=== PATIENT | male | born 1955 | race Caucasian/White ===

== ENCOUNTER 2019-04-04 07:55 | Day surgery (SDC) | payer BC ==
[~2019-04-04] VITALS: Ht 175.3 cm; Wt 70.1 kg
[~2019-04-04 07:55] MED LIST: ASPI81CH PO; Coq-1030 MG PO; Crestor20 MG PO; GABA100 PO; Hair, Skin & N1 EACH PO; INDOMETHACIN ER75 MG PO; LO-DOSE ASPIRIN81 MG PO; Metoprolol Succ25 MG PO; Pravastatin Sod20 MG PO; Prilosec10 M1 PO; Prinivil10 MG PO; ROSU10TA PO; SULFASALAZINE PO; Zantac150 MG PO
== END 2019-04-04 09:46 | disposition home or self-care (01) ==
LOC: ORSCSDS 07:55
PROVIDERS: Surgery
PROC: 0JBL0ZZ Excision of Right Upper Leg Subcutaneous Tissue and Fascia, Open Approach (ICD-10-PCS; principal; 2019-04-04 09:00)
DX: D17.1 Benign lipomatous neoplasm of skin and subcutaneous tissue of trunk (principal); E78.5 Hyperlipidemia, unspecified; I10 Essential (primary) hypertension; K21.9 Gastro-esophageal reflux disease without esophagitis; Z79.82 Long term (current) use of aspirin; Z79.899 Other long term (current) drug therapy
CPT/HCPCS: 88304; J7120

== ENCOUNTER 2019-07-12 06:50 | Emergency (ER) | payer BC ==
[~2019-07-12] VITALS: Ht 175.3 cm; Wt 69.4 kg
[2019-07-12] MEDS ORDERED: ROSU10TA PO (07:21)
[2019-07-12] MEDS ORDERED: OMEPRAZOLE20 MG PO (07:22)
[2019-07-12] MEDS ORDERED: NITR.4SL SL (07:24)
[2019-07-12 08:11] LABS: BASOPHILS ABSOLUTE AUTO 0.03 K/mm3 (0.00-0.23); BASOPHILS PERCENT AUTO 1 % (0-2); EOSINOPHILS ABSOLUTE AUTO 0.23 K/mm3 (0.00-0.68); EOSINOPHILS PERCENT AUTO 4 % (0-6); Hematocrit 42.4 % (37.0-53.0); Hemoglobin 14.2 g/dL (13.5-17.5); IMMATURE GRAN ABSOLUTE AUTO 0.01 K/mm3 (0.00-0.10); IMMATURE GRAN PERCENT AUTO 0 % (0-1); LYMPHOCYTES ABSOLUTE AUTO 1.37 K/mm3 (0.84-5.20); LYMPHOCYTES PERCENT AUTO 26 % (21-46); MONOCYTES ABSOLUTE AUTO 0.65 K/mm3 (0.16-1.47); MONOCYTES PERCENT AUTO 13 % (4-13); Mean Corpuscular HGB 30.6 pg (26.0-34.0); Mean Corpuscular HGB Conc 33.5 g/dL (31.5-36.5); Mean Corpuscular Volume 91 fL (80-100); NEUTROPHILS ABSOLUTE AUTO 2.93 K/mm3 (1.96-9.15); NEUTROPHILS PERCENT AUTO 56 % (41-73); Platelet Count 213 K/mm3 (150-400); RDW Coefficient Variation 12.6 % (11.7-14.2); RDW Standard Deviation 41.9 fL (35.1-46.3); Red Blood Cell Count 4.64 M/mm3 (4.30-5.90); White Blood Cell Count 5.22 K/mm3 (4.00-11.30)
[2019-07-12 08:44] LABS: Alanine Aminotransfer (ALT/SGP 38 U/L (12-78); Albumin/Globulin Ratio 1.2 (0.8-1.8); Alk Phos 52 U/L (50-136); Anion Gap 5 mmol/L (6-16); Aspartate Aminotrans (AST/SGOT 34 U/L (12-37); Bilirubin, Total 0.5 mg/dL (0.1-1.0); Blood Urea Nitrogen 12 mg/dL (8-24); Bun/Creatinine Ratio 16.2 (12.0-20.0); CO2, Blood 26 mmol/L (21-32); Calcium, Blood 8.8 mg/dL (8.5-10.1); Chloride, Blood 109 mmol/L (98-108); Creatinine, Blood 0.74 mg/dL (0.60-1.20); Globulin, Blood 3.4 g/dL (2.2-4.0); Glomerular Filtration Rate >60 (60-); Glucose, Blood 98 mg/dL (70-99); Potassium, Blood 4.1 mmol/L (3.5-5.5); Sodium, Blood 140 mmol/L (136-145); Total Protein, Blood 7.4 g/dL (6.4-8.2)
[2019-07-12] MEDS ORDERED: METPRE4DP PO (10:17)
== END 2019-07-12 10:30 | disposition home or self-care (01) ==
LOC: ER 06:50
PROVIDERS: Emergency Medicine
DX: M48.061 Spinal stenosis, lumbar region without neurogenic claudication (principal); R20.2 Paresthesia of skin; Z88.0 Allergy status to penicillin; Z79.899 Other long term (current) drug therapy; Z79.82 Long term (current) use of aspirin
CPT/HCPCS: 36415; 72148; 80053; 85025; 93926; 99284-25

== ENCOUNTER → 2020-02-12 | Outpatient (CLI) | payer BC ==
[~2020-02-12] MED LIST changes: +METPRE4DP PO; +NITR.4SL SL; +OMEPRAZOLE20 MG PO
== END | disposition home or self-care (01) ==
LOC: LAB SHORT 20:15 → LAB 20:15 → LAB SHORT 20:16
DX: L08.9 Local infection of the skin and subcutaneous tissue, unspecified (principal)
CPT/HCPCS: 87070; 87075; 87205

== ENCOUNTER → 2020-08-25 | Outpatient (CLI) | payer BC | LOC: LAB SHORT 11:16 → PLD 11:16 | DX: D22.62 Melanocytic nevi of left upper limb, including shoulder (principal); D48.5 Neoplasm of uncertain behavior of skin | CPT/HCPCS: 88305; 88342 ==

== ENCOUNTER → 2020-09-14 | Outpatient (CLI) | payer BC | END | disposition home or self-care (01) | LOC: LAB SHORT 11:22 → PLD 11:22 | DX: D03.62 Melanoma in situ of left upper limb, including shoulder (principal); L81.4 Other melanin hyperpigmentation | CPT/HCPCS: 88305 ==

== ENCOUNTER 2023-11-19 08:08 | Day surgery (SDC) | payer BC, MEDICARE ==
[~2023-11-19] VITALS: Ht 175.3 cm; Wt 74.0 kg
[2023-11-19] VITALS (7 sets, daily range): BP systolic 115–173; BP diastolic 74–98
[~2023-11-19 08:08] MED LIST changes: +INDO50 PO; +Imdur30 MG PO; +LEQVIO284 MG/1.5 SC; +PANT40 PO; +PIRO10 PO; +VALGANCICLOVIR PO
[2023-11-19] MEDS ORDERED: VALCYCLOVIR PO (08:26)
[2023-11-19] MEDS ORDERED: SULI150 PO (08:28)
[2023-11-19] MEDS ORDERED: SULF500 PO (08:29)
[2023-11-19] MEDS ORDERED: Verapamil HCL 2.5 MG/ML 2ML Injection ONE (10:04)
[2023-11-19] MEDS ORDERED: Heparin Sodium 1000 Units/ML 10ML MDV ONE (10:05)
[2023-11-19] MEDS ORDERED: NS 1,000 ML IV ONE ×2 (10:05→10:33)
[2023-11-19] MEDS ORDERED: NS 250 ML IV ONE (10:05)
[2023-11-19] MEDS ORDERED: Nitroglycerin 2 MG/20 ML BTL ONE (10:05)
[2023-11-19] MEDS ORDERED: FentaNYL Citrate 50 MCG/ML 2 ML Injection ONE (10:33)
[2023-11-19] MEDS ORDERED: Midazolam HCl 1MG / ML 2ML Vial ONE (10:33)
--- NOTE | 2023-11-19 11:19 | NUR ---
PT RETURNED TO RECOVERY ROOM IN [facility]. RIGHT RADIAL TR BAND SITE SOFT NON-TENDER WITH NO HEMATOMA, NO PULSATILE BLEEDING AND RIGHT WRIST BOARD IN PLACE. PT DRINKING SODA. PT'S IN ROOM. CALL LIGHT IN REACH.
--- NOTE | 2023-11-19 11:39 | NUR ---
FULL REPORT PROVIDED NIKOS Soto RN TO ASSUME CARE OF PT IN RECOVERY ROOM.
[2023-11-19] MEDS ORDERED: Isosorbide Mono30 MG PO (12:37)
--- NOTE | 2023-11-19 13:17 | NUR ---
10CC AIR REMOVED FROM R WRIST TR BAND. NEG BLEEDING OR SWELLING.
--- NOTE | 2023-11-19 13:50 | NUR ---
PT AND VERBALIZED UNDERSTANDING OF WRITTEN AND VERBAL D/C INST. IV REMOVED. R WRIST TR BAND REMOVED AND CLOTH DOT DRSG PLACED. R WRIST SPLINT REAPPIED. PT AMB OUT OF THE DEPARTMENT /S DIFFICULTY.
== END 2023-11-19 13:45 | disposition home or self-care (01) ==
LOC: MHTC 08:08
DX: I25.10 Atherosclerotic heart disease of native coronary artery without angina pectoris (principal); R93.89 Abnormal findings on diagnostic imaging of other specified body structures; R07.9 Chest pain, unspecified
CPT/HCPCS: 76937; 93458; 99152; C1769; C1894; J1644; J2250; J3010; J7030; J7050; Q9967